=== PATIENT | female | born 1980 | race American Indian/Alaskan Native ===

== ENCOUNTER 2025-03-20 21:28 | Emergency (ER) | payer BC, SELFPAY ==
[2025-03-20 21:29] VITALS: BMI 33.6
[2025-03-20 22:04] VITALS: BP 121/88; PULSE 71; RESP 20; TEMP 37; O2SAT 98
--- NOTE | 2025-03-20 22:14 | XR_ITS ---
EXAMINATION: Ankle, right 3 views . Technique: Ankle AP, oblique, lateral 3 views Date and time of exam: March 20, 2025 1024 hours INDICATIONS: Patient fell yesterday with injury of the ankle, ankle pain. FINDINGS: Lateral malleolar soft tissue swelling No fracture or dislocation IMPRESSION: No fracture or dislocation
--- NOTE | 2025-03-20 22:14 | XR_ITS ---
Examination: Right os calcis 2 views Technique one lateral axial right os calcis 2 views Date and time: March 20, 2025 10:26 PM INDICATIONS: Patient fell yesterday with injury to the heel, heel pain FINDINGS: No acute fracture No cortical bone destruction No foreign body IMPRESSION: No acute fracture
--- NOTE | 2025-03-20 22:14 | XR_ITS ---
Examination: Knee, right , 3 views Technique: Knee AP, lateral, oblique 3 views Date and time of exam: March 20, 2025 1024 hours INDICATIONS: Patient fell yesterday with injury to the knee, knee pain. FINDINGS: No fracture or dislocation. No foreign body IMPRESSION: No fracture or dislocation
--- NOTE | 2025-03-20 22:16 | PD.EDANKLE ---
Lower Extremity Injury RME/HPI General Chief Complaint: Ankle/Foot Injury Stated Complaint: R ANKLE INJURY Time Seen by Provider: 03/20/25 21:51 Arrival date/time: 03/20/25 21:28 RME / HPI RME / HPI Narrative: 44-year-old female presents to the ED with a complaint of right ankle, heel and right knee pain secondary to a fall off of a chair yesterday causing an inversion type injury. She denies any other injuries. She has been icing and elevating the right ankle and foot however today she noticed numbness to the bottom of her toes. She has painful weightbearing with the majority of her pain in her right heel. Related Data Home Medications ?Medication ?Instructions ?Recorded ?Confirmed Vits W-Ca,Fe,Fa(<1MG) 1 tab PO DAILY ##0 02/05/13 () folic acid 1 mg tablet 1 mg PO DAILY ##0 02/05/13 Allergies Allergy/AdvReac Type Severity Reaction Status Date / Time No Known Allergies Allergy Mild Uncoded 09/16/13 08:24 Review of Systems Review of Systems Systems Reviewed: All systems reviewed, normal except as documented Past Medical History Social History SMOKING STATUS: Never smoker ED Exam Narrative Physical exam: A&O, afebrile and non-toxic appearing 44-year-old female, no acute distress. No respiratory distress noted. Tenderness to the right lateral knee in the area of the lateral meniscus. No swelling, erythema or warmth noted to the right knee. No tenderness to palpation of the anterior tibia, medial tibia or medial malleolus, proximal or midshaft fibula. There is tenderness to the distal fibula and lateral malleolus. She has tenderness to the heel. She has no tenderness to the metatarsals of the right foot. She has mild pain with eversion and inversion of the right ankle. No pain with plantarflexion or dorsiflexion of the right foot/ankle. Course Course Course Narrative: X-rays were obtained of the right ankle, right calcaneus, and right knee. XR right ankle reveals: No acute fracture or dislocation. XR right calcaneus reveals: No acute fracture. XR right knee reveals: No acute fracture or dislocation. Patient was given ibuprofen 600 mg Patient's right ankle and foot were wrapped with an Torrey wrap and the patient was fitted with a pair of crutches. Quality Measures none Orders Category Date Time Status Crutches .NOW Care 03/21/25 00:21 Active torrey wrap [Splint / Immobilizer] STAT Care 03/21/25 00:21 Active XR ankle comp RT min 3V Stat Exams 03/20/25 22:14 Completed XR calcaneus RT min 2V Stat Exams 03/20/25 22:14 Completed XR knee RT 3V Stat Exams 03/20/25 22:14 Completed Ibuprofen Tab [Motrin Tab] Med 03/21/25 00:20 Discontinued 600 mg PO X1 ONE Vital Signs Vital signs: Vital Signs Temperature 98.6 F 03/20/25 22:04 Pulse Rate 71 03/20/25 22:04 Respiratory Rate 20 03/20/25 22:04 Blood Pressure 121/88 H 03/20/25 22:04 Pulse Oximetry (%) 98 03/20/25 22:04 Oxygen Delivery Method Room Air 03/20/25 22:04 Extremity Injury, Lower MDM Narrative MDM Narrative:: 44-year-old female presents to the ED with a complaint of right ankle, heel and right knee pain secondary to a fall off of a chair yesterday causing an inversion type injury. She denies any other injuries. She has been icing and elevating the right ankle and foot however today she noticed numbness to the bottom of her toes. She has painful weightbearing with the majority of her pain in her right heel. A&O, afebrile and non-toxic appearing 44-year-old female, no acute distress. No respiratory distress noted. Tenderness to the right lateral knee in the area of the lateral meniscus. No swelling, erythema or warmth noted to the right knee. No tenderness to palpation of the anterior tibia, medial tibia or medial malleolus, proximal or midshaft fibula. There is tenderness to the distal fibula and lateral malleolus. She has tenderness to the heel. She has no tenderness to the metatarsals of the right foot. She has mild pain with eversion and inversion of the right ankle. No pain with plantarflexion or dorsiflexion of the right foot/ankle. X-rays were obtained of the right ankle, right calcaneus, and right knee. XR right ankle reveals: No acute fracture or dislocation. XR right calcaneus reveals: No acute fracture. XR right knee reveals: No acute fracture or dislocation. Patient was given ibuprofen 600 mg Patient's right ankle and foot were wrapped with an Torrey wrap and the patient was fitted with a pair of crutches. Symptoms, exam and diagnostic studies are consistent with: Right ankle sprain with calcaneus contusion. Right knee sprain. Patient was discharged home in stable condition. Patient/family advised to follow-up with their PCP in 24-48 hours. Encouraged to return to the ED for any new or worsening symptoms. Patient data External records reviewed:: None Clinical information provided by:: patient Social determinants that could affect healthcare access:: none Patient has the following chronic illnesses:: N/A How is presenting disease/condition affected by chronic disease/condition?: no chronic disease Evaluation data The following diagnostics were reviewed and interpreted by me:: radiology exam(s) Lab and/or radiology exams considered but not ordered:: N/A Interpretation Summary: As noted above Medications / Prescriptions Medications or Prescriptions considered but not ordered:: N/A Medication administrations:: Medication Administration History Discontinued Medications Ibuprofen (Ibuprofen Tab 600 Mg Tablet) 600 mg PO X1 ONE Stop: 03/21/25 00:21 As noted above Consultations Consultation(s) initiated? (list below): No Diagnosis Extremity Injury, Lower Differential Diagnosis: ankle sprain and strain, acute internal derangement of knee, ankle fracture and other (Calcaneus fracture, calcaneus contusion) Most likely diagnosis given after review of the tests above:: Right ankle sprain and calcaneus contusion. Admission Indicated Admission indicated?: not indicated Explain why admission is indicated or not indicated:: Patient is stable for discharge Admission Request Was there a request for admission?: No Admission Attestation Admission request attestation: N/A Disposition Plan Disposition Plan: Discharge Discharge Attestation Discharge Attestation: The patient and all family members were given an opportunity to ask questions and understood the discharge instructions. Discharge instructions specifically effects, indications for sooner follow up or return to the emergency department, and the expected course of current diagnosis. Patient condition: Stable Discharge Plan Plan Patient Disposition: HOME (Self Care) Discharge Disposition comment: Stable Prescriptions/Referrals Prescriptions/Med Rec: No Action folic acid 1 MG tablet 1 mg PO DAILY Qty: 0 Vits W-Ca,Fe,Fa(<1MG) () 1 TAB tablet 1 tab PO DAILY Qty: 0 Referrals: No Primary/Family,Physician [Primary Care Provider] - In 1 week Problem List Clinical Impression: Ankle sprain and strain, Right knee sprain Patient/Caregiver Discharge Instructions Education Materials: ED TORREY Wrap, ED Knee Sprain, ED Ankle Sprain (Adult) Additional Instructions: Ice and elevate the right lower extremity. Use the Torrey wrap and crutches for comfort until you are able to bear weight. Follow-up with your primary care physician in 24 to 48 hours. Return to the ED for any new or worsening symptoms. Print Language: Slovenian Stand Alone Forms: Patient Portal Info Letter PA/[employer] SUPERVISOR Supervising Physician PA/STRU[employer]URAL [employer] SUPERVISOR Supervising Physician: Dr. Tobar
[2025-03-21] MEDS: IBUPROFEN TAB 600 MG TABLET PO (00:38)
== END 2025-03-21 00:53 | disposition home or self-care (01) ==
PROVIDERS: Emergency Provider Emergency Medicine
DX: S83.91XA Sprain of unspecified site of right knee, initial encounter (principal); W07.XXXA Fall from chair, initial encounter; S93.401A Sprain of unspecified ligament of right ankle, initial encounter
CPT/HCPCS: 73562; 73610; 73650; 99284; A9270